=== PATIENT | female | born 1935 | race Caucasian/White ===

== ENCOUNTER 2017-03-09 05:46 | Day surgery (SDC) | payer MEDICARE ==
[2017-03-09] VITALS (12 sets, daily range): BP systolic 91–158; BP diastolic 53–78; PULSE 63–90; RESP 16–20; TEMP 97.8–98.2; O2SAT 92–99
[~2017-03-09] VITALS: Ht 157.5 cm; Wt 71.0 kg
[2017-03-09] MEDS ORDERED: LORazepam 1 MG TAB SL SCH (06:00)
[2017-03-09] MEDS ORDERED: SODIUM CHLORID 0.9% 500 ML INJ 500 ML IV SCH (06:00)
[2017-03-09] MEDS ORDERED: POVIDONE IODINE 5% (ANTISEPSIS KIT) 4 APPLICATIONS EACH NARE PRN (06:15)
[2017-03-09] MEDS ORDERED: CHLORHEXIDINE GLUCONATE 2 % 1 PACK (2 CLOTHS) TOPICAL PRN (06:15)
[2017-03-09] MEDS ORDERED: SODIUM CHLORID 0.9% 500 ML IV PRN (06:15)
[2017-03-09] MEDS ORDERED: METOPROLOL TARTRATE 25 MG TAB PO PRN (06:15)
[2017-03-09] MEDS ORDERED: LACTATED RINGER'S 1000 ML IV PRN (06:15)
[2017-03-09] MEDS ORDERED: INSULIN HUMAN REGULAR 1,000 UNITS/10 ML VIAL SQ PRN (06:15)
[2017-03-09] MEDS ORDERED: LEVOFLOXACIN 500 MG PREMIX INJ 100 ML IV ONE (06:30)
[2017-03-09] MEDS ORDERED: SODIUM CHLOR 0.9% 250 ML INJ 250 ML ONE (06:46)
[2017-03-09] MEDS ORDERED: MIDAZOLAM HCL 2 MG/2 ML VIAL ONE (06:46)
[2017-03-09] MEDS ORDERED: ISOPROTERENOL HCL 1 MG/5 ML AMP ONE (06:46)
[2017-03-09] MEDS ORDERED: HEPARIN-D5W INJ 250 ML ONE (06:46)
[2017-03-09] MEDS ORDERED: fentaNYL CITRATE 250 MCG/5 ML AMP ONE (06:46)
[2017-03-09] MEDS ORDERED: PROTAMINE SULFATE 50 MG/5 ML VIAL ONE (07:00)
[2017-03-09] MEDS ORDERED: FUROSEMIDE 40 MG/4 ML VIAL ONE (07:00)
[2017-03-09] MEDS ORDERED: HEPARIN SODIUM - IV 10,000 UNITS/10 ML VIAL ONE (07:00)
[2017-03-09 07:14] LABS: AUTOMATED NEUTROPHIL # 4.6 TH/MM3 (1.8-7.7); BASOPHIL % 0.4 % (0.0-2.0); EOSINOPHIL # 0.2 TH/MM3 (0-0.4); EOSINOPHIL % 2.7 % (0.0-4.0); HEMATOCRIT 33.3 % (35.0-46.0); HEMO FLAGS DIFF FINAL; LYMPH % 26.9 % (9.0-44.0); MEAN CELL VOLUME 90.2 FL (80.0-100.0); MEAN CORPUSCULAR HEMOGLOBIN 31.4 PG (27.0-34.0); MEAN CORPUSCULAR HGB CONC 34.9 % (32.0-36.0); PLATELET COUNT 256 TH/MM3 (150-450); RED BLOOD COUNT 3.69 MIL/MM3 (4.00-5.30); RED CELL DISTRIBUTION WIDTH 13.1 % (11.6-17.2); WHITE BLOOD COUNT 7.3 TH/MM3 (4.0-11.0)
[2017-03-09 07:17] LABS: APTT (PATIENT) 24.7 SEC (24.3-30.1); PROTHROMBIN TIME - PATIENT 10.6 SEC (9.8-11.6)
[2017-03-09 07:34] LABS: POTASSIUM 4.2 MEQ/L (3.5-5.1)
[2017-03-09] MEDS ORDERED: HEPARIN-NS/PF INJ 500 ML ONE (07:45)
[2017-03-09] MEDS ORDERED: METO25TA3 PO (08:14)
[2017-03-09] MEDS ORDERED: ATOR20TA15 PO (08:14)
[2017-03-09] MEDS ORDERED: ASPI81TA5 PO (08:14)
[2017-03-09] MEDS ORDERED: FISH1000 PO (08:14)
[2017-03-09] MEDS ORDERED: XARE20TA PO (08:14)
[2017-03-09] MEDS ORDERED: AMIO0.1T PO (08:14)
[2017-03-09] MEDS ORDERED: diphenhydrAMINE HCL 50 MG/ML VIAL ONE (08:25)
--- NOTE | 2017-03-09 10:11 | PD.CARD ---
Atrial Fibrillation Ablation PROCEDURE DATE: Mar 09, 2017 PROCEDURES PERFORMED: 1. Electrophysiology study and repeat electrophysiology on Isuprel infusion 2. CS cannulation 3. 3-D mapping 4. Transseptal approach 5. Right and left heart catheterization 6. Intracardiac echo 7. Radiofrequency ablation of atrial fibrillation 8. Pulmonary vein isolation 9. Posterior wall ablation 10. Mitral line creation 11. Anterior wall ablation INDICATIONS FOR THE PROCEDURE Ms. Fabian is a 81-year-old female with atrial fibrillation , very symptomatic despite multiple medications, on anticoagulation, previous ER visits referred for electrophysiology study and ablation. The risks, the nature and the benefits of the procedure were clearly stated to her. The risks include pneumothorax, cardiac perforation, stroke, need for open heart surgery and even . The patient understood and agreed to proceed. DESCRIPTION OF THE PROCEDURE IN DETAIL As written informed consent was obtained prior to esophageal echocardiogram, the patient was kept on the table where she was prepped and draped in the usual sterile fashion. Conscious sedation was initiated and maintained throughout the procedure by the anesthesiologist. Once sedation was verified, the right and left inguinal areas were anesthetized with 2% Xylocaine. Using modified Seldinger technique, the left femoral vein was cannulated on three occasions, three guidewires were advanced. Over the wire a 6, 7 and a 10-Tongan Hemaquet were advanced. Then the left femoral artery was cannulated on one occasion, one guidewire was advanced. Over the wire a 4-Tongan Hemaquet was advanced. Then the right femoral vein was cannulated on one occasion, one guidewire was advanced. Over the wire a 8-Tongan Hemaquet was advanced. Then under fluoroscopic guidance through the 6 and 7-Tongan Hemaquet, two 5-Tongan Brigitte curved quadripolar electrophysiology catheters were advanced and placed around the His as well as coronary sinus. Basic interval was measured. The patient was in atrial fibrillation. Through the 10-Tongan Hemaquet, a Cordis French AcuNav intracardiac echo catheter was advanced and placed at the right atrium. Multiple view was obtained. There was no pericardial effusion, pulmonary vein was seen, atrial septal was visualized. Then the 8-Tongan Hemaquet in the right femoral vein was exchanged for Agilis transseptal sheath that was placed all the way to the superior vena cava. Through the sheath a Shell needle was advanced, then the sheath, the dilator and the needle were progressed until foci engaged. Once engaged, the needle was advanced. RF was delivered for 2 seconds. I was able to cross into the left atrium. Once the needle crossed, the dilator was advanced. Once the dilator crossed, the sheath was advanced. Once the sheath crossed, the dilator and the needle were removed. At this point I did flood the system and fluid movement was seen in the left atrium the indicates the sheath is in good position. The patient already received 8,000 units of heparin. The goal is to keep an ACT around 350 during ablation. Then through the sheath a [facility]. Loi 20 pulse circumferential catheter was advanced. Using [employer] endocardial solution mapping system, a two- dimensional configuration of the left atrium was obtained. Points were taken at the left superior and inferior veins, right superior and inferior veins, mitral valve, and appendages. Then through the sheath a St. Loi TactiCath 65cm 3.5mm irrigated tipped mapping and radiofrequency ablation catheter was advanced. Esophageal probe was placed temperature monitoring during ablation. When it increased to 0.5 degrees Celsius above baseline, I moved to a different area of the atrium. First I did isolate the left superior and inferior vein. I did make a venetie around the veins. Posterior was ablated. A mitral line was created. Then the right superior and inferior veins were isolated. Anterior wall was ablated. Posterior wall was ablated. I did make a venetie around both veins. did remap the atrium. There is no significant signal in the atrium. At that point I did advance the circumferential catheter again into the vein. There was no signal into the vein, pacing from the vein showed no conduction to the atrium. Isuprel infusion was initiated at 20 mcg for over 10 minutes. No tachyarrhythmia was induced, post Isuprel no tachyarrhythmia was induced. At that point the procedure was complete. All catheters were removed, atrial septal sheath was exchanged for a 9French Hemaquet, intracardiac echo showed no pericardial effusion. There is still good flow in the pulmonary vein. The patient is going to be transferred to the recovery room. No incident report. The patient tolerated the procedure. Blood loss was minimal. FINDINGS 1. Electrocardiogram: At baseline the patient was in sinus rhythm. Post procedure EKG was unchanged. 2. Basic interval: Base cycle length was around 922. AH at 94 and HV at 72 milliseconds. 3. Tachyarrhythmia: Atrial fibrillation was mapped and ablated. The ablation was successful. CONCLUSION Successful electrophysiology study, mapping, radiofrequency ablation of atrial fibrillation,pulmonary vein isolation, posterior ablation, mitral line creation. COMMENTS AND RECOMMENDATIONS The patient is going to be transferred to the telemetry unit. Will be observed and when stable can be discharged home. Arsen Callahan MD Mar 09, 2017 10:11
[2017-03-09] MEDS ORDERED: LORazepam 2 MG/ML VIAL IV PRN (10:15)
[2017-03-09] MEDS ORDERED: oxyCODONE/ACETAMINOPHEN 5 MG/325 MG TAB PO PRN ×2 (10:15)
[2017-03-09] MEDS ORDERED: SODIUM CHLOR 0.9% 250 ML INJ 250 ML IV PRN (10:15)
[2017-03-09] MEDS ORDERED: BACITRACIN OINT 0.9 GM PKT TOP ONE (10:15)
[2017-03-09] MEDS ORDERED: ATROPINE SULFATE 1 MG/ML VIAL IV PRN (10:15)
[2017-03-09] MEDS ORDERED: LIDOCAINE HCL 1% 50 ML VIAL INFIL PRN (10:15)
[2017-03-09] MEDS ORDERED: METOCLOPRAMIDE HCL 10 MG/2 ML VIAL IV PRN (10:15)
[2017-03-09] MEDS ORDERED: ONDANSETRON HCL 4 MG/2 ML VIAL IV PRN (10:15)
--- NOTE | 2017-03-09 10:17 | CATHPROC ---
[facility] HIS Report Study Information Study Number Admission Scheduled Start Study Start [id number] Mar 09 2017 5:46AM 03/09/2017 Mar 09 2017 6:48AM [place] [facility] Electrophysiology Study Admit Source Facility Department Other [facility] - Power Plant Engineer Physician and Clinical Staff Initial Arsen Graham Veneer Measurer Claudia Vargas RCIS Veneer Measurer Elvis Steele,RT(R) Other Anesthesia, HOME CARE COORDINATOR Recorder Mercy Avalos,FABRICIO Recorder Caro Hayward,FABRICIO Scrub Carol Dey,WEATHERIZATION SPECIALIST TECH2 Procedures Performed Procedure Location (Site) Vessel Name Ablation Procedure ICE CATHETER INSERT RA Atruim RF Ablation LT. ATRIUM LT. ATRIUM Equipment Time Creel Selector Description Size Mfg Part Number Used/Scraped TRANSDUCER, TRUWAVE [id number] 07:58 TIRADO MCCABE * Used W/BITACOCK *[id number] NEEDLE, TRANSSEPTAL NRG 98 07:58 [facility] [id number] Used C1 COVER, TRANSDUCER CABLE 07:58 [employer] 612-113 Used ACUNAV 07:58 CONMED LEADWIRE, DEFIBRILLATION PAD 2001M-[id number] Used 07:58 CORDIS/PACER SHEATH, FR10 MEDARDO 11CM FR 10 [id number] Used 09:58 CORDIS/PACER SHEATH, FR9 MEDARDO 11CM FR 9 [id number] Used [id number] 07:58 [employer] PACK, CCL CUSTOM * Used *[id number] 07:58 MEDLINE PACER SANTIAGO, LIMB * 2530 *[id number] Used [id number] 07:58 [employer] MEDICAL SHEATH, FR4.5 PRELUDE 11CM FR 4.5 Used [id number] [id number] 07:58 NAMIC MANIFOLD, 4 PORT * Used *[id number] 07:58 NAMIC TUBING, HIGH PRESSURE 48" 48" Used *[id number] 07:58 NAMIC TUBING, HIGH PRESSURE 48" 48" Used *[id number] 07:58 GARC[employer] MED[employer] BLANKET,WARM AIR CCL * Used *[id number] CATHETER, TACTICATH ABLAT [id number] 08:55 [facility] [employer] Used 65 *[id number] 08:50 [facility] CATHETER, FR7 OPTIMA SPIRAL FR7 [id number] *[id number] Used [id number] 07:58 [facility] [employer] CATHETER, JSN, QUAD FR 5 Used *[id number] 699794 07:58 [facility] CATHETER, JSN, QUAD FR 5 Used *[id number] 07:58 [facility] [employer] ELECTRODE KIT, HUNTER X SURFACE * [id number] Used 07:58 [facility] [employer] SHEATH, EPS, FR6 FAST CATH FR 6 [id number] Used 08:33 [facility] [employer] SHEATH, EPS, FR6 FAST CATH FR 6 [id number] Used 07:58 [facility] [employer] SHEATH, EPS, FR7 FAST CATH FR 7 [id number] Used 07:58 [facility] [employer] SHEATH, EPS, FR8 FAST CATH FR 8 [id number] Used SHEATH, FR8.5 STEERABLE SM 08:48 [facility] 71CM [id number] Used 71CM CATHETER, ACUNAV FR10 ICE [id number] 08:41 JEN FR 10 Used (JEN) *[id number] [facility] PAD, ELECTROSURGICAL 07:58 * [id number] *[id number] Used SURGICAL GROUNDING (BLUE) History: Allergies Allergy Reaction Cipro History: Risk Factors Hypertension Dyslipidemia Yes Yes Labs Hgb (g/dl) Hct (%) RBC (MIL/MM3) WBC (l/cumm) Platelets (thousands) 12.00-18.00 37.00-55.00 4.80-6.20 4.80-10.80 140.00-450.00 11.0 33 3.6 7.3 256 Glucose (mg/dl) BUN (mg/dl) Creatinine (mg/dl) BUN:Creatinine (1:x) 60.00-110.00 8.00-20.00 0.10-9.00 10.00-20.00 93 10 0.6 16.7 Na (meq/l) K (meq/l) 138.00-146.00 3.80-5.10 140 4.2 INR (PTT:PT) 0.50-2.00 1 Medication Medication Total Dose (Bolus/Oral) Medication Total Dosage/Unit 1% XYLOCAINE 40 mL HEPARIN 32718 units LASIX 40 mg PROTAMINE 40 mg Medications (Bolus/Oral) Medication Time Given Dosage/Unit Administered By Reason 1% XYLOCAINE 03/09/2017 8:30:23 AM 20 mL Arsen Callahan 20 mL 1% XYLOCAINE given in lab by Arsen Callahan in Left Groin via Subcutaneous. Ordered by Alber Callahan 1% XYLOCAINE 03/09/2017 8:33:48 AM 20 mL Arsen Callahan 20 mL 1% XYLOCAINE given in lab by Arsen Callahan in Right Groin via Subcutaneous. Ordered by Wei Callahan. HEPARIN 03/09/2017 8:44:59 AM 8000 units Anesthesia, HOME CARE COORDINATOR 8000 units HEPARIN given in lab by Anesthesia, HOME CARE COORDINATOR via Peripheral IV. Ordered by Arsen Callahan. HEPARIN 03/09/2017 9:43:28 AM 2000 units Anesthesia, HOME CARE COORDINATOR 2000 units HEPARIN given in lab by Anesthesia, HOME CARE COORDINATOR via Peripheral IV. Ordered by Arsen Callahan. LASIX 03/09/2017 10:03:50 AM 40 mg Anesthesia, HOME CARE COORDINATOR 40 mg LASIX given in lab by Anesthesia, HOME CARE COORDINATOR via Peripheral IV. Ordered by Arsen Callahan. PROTAMINE 03/09/2017 10:06:33 AM 40 mg Anesthesia, HOME CARE COORDINATOR 40 mg PROTAMINE given in lab by Anesthesia, HOME CARE COORDINATOR via Peripheral IV. Ordered by Arsen Callahan. Medication (Drip) Medication Time Given Dosage/Unit Concentration/Unit Diluent (ml) Solution ISUPREL 03/09/2017 9:47:04 AM 20 mcg/min 1 mg 250 NaCl .9 20 mcg/min ISUPREL given in lab by Anesthesia, HOME CARE COORDINATOR via Peripheral IV. Pump/Drip Flow = 300 ml/hr usi ng NaCl .9 with a concentration of 1 mg in 250 ml. Ordered by Arsen Callahan. Initial Case Assessment Cardiovascular HR Rhythm NIBP Chest Pain 65 sr 163/98 0 Edema Present Skin color Skin None Normal Warm Dry Circulatory - Right Pulses Dorsalis Pedis 1 Scale (0,1,2,3,4,d) Circulatory - Left Pulses Dorsalis Pedis 2 Scale (0,1,2,3,4,d) Circulatory - Lower Extremities Color Lower Right Color Lower Left Normal Normal Neurological State Oriented to time-place- Alert Moves all extremities person Respiration - General Respiration Rate SpO2 (%) (B/min) 20 94 Final Case Assessment Cardiovascular HR Rhythm NIBP Chest Pain 105 Regular 128/68 0 Edema Present Skin color Skin None Normal Warm Dry Circulatory - Right Pulses Dorsalis Pedis 1 Scale (0,1,2,3,4,d) Circulatory - Left Pulses Dorsalis Pedis 2 Scale (0,1,2,3,4,d) Circulatory - Lower Extremities Color Lower Right Color Lower Left Normal Normal Neurological State Oriented to time-place- Alert Moves all extremities person Respiration - General Respiration Rate SpO2 (%) (B/min) 14 99 Chronological Log Time Study Chronological Log 7:27:22 Patient arrived via Bed. 7:28:29 Patient Name, D.O.B, / Armband Verified By R.N. 7:28:31 Consent signed by the physician and the patient and verified by the Power Plant Engineer staff. 7:28:32 Pre-op and post- op instructions given; patient acknowledges understanding of instructions. 7:36:06 Verbal Stimulation=2 Physical Stimulation=2 Airway=2 Respiration=2 TOTAL=8. (0=absent, 1=li mited, 2=present) 7:36:07 Anesthesia at bedside. Assumes care of patient. 7:36:09 Patient has been NPO for More than 6Hrs. 7:36:10 Skin Breakdown- 7:36:11 Patient Warmer Placed on the Table. 7:36:12 Disposable Defibrillator Pads Placed On Patient. 7:36:14 Kvng Prominences Protected 7:36:15 A # 22 IV was noted in the Wrist (left). Grade = 0 0.9ns kvo 7:36:17 History and physical on the chart or being dictated. Assessment: Initial Case, HR=65 BPM, Rhythm=sr, QXXK=326/98 mmhg, Chest Pain=0, Edema=None, [place] r=Normal, Skin = Warm, Dry Right Pulses: Benedict Ped=1 Left Pulses: Benedict Ped=2 7:40:28 Lower Right Extremities: Color=Normal Lower Left Extremities: Color=Normal Neurological: State=Alert, Ox3, COYNE Respiration: Resp=20 B/min, SpO2=94 % 7:48:15 Table restraints applied according to hospital policy 7:53:03 Bilateral groins prepped with 2% chlorhexidine, and with a 3 min. waiting time. 7:56:11 Reference ECG taken 8:00:12 Anesthesia present for intubation 8:01:54 Pressure channel 1 zeroed. 8:04:36 MD paged 8:21:27 MD arrived. 8:21:35 MM out. JA in. Time Out. Correct patient, procedure, procedure equipment, site and side verified with physician present. Time 8:24:12 concurred by MD, individual staff and HOME CARE COORDINATOR. Time Out #2 - Consents verified, patient in correct position, all results are labled and display ed, safety precautions 8:24:23 taken, antibiotics administered. Time out concurred by MD, individual staff and HOME CARE COORDINATOR in procedur e 8:25:27 Case Start 8:25:30 SUJIT in progress 8:29:06 SUJIT complete 8:30:23 20 mL 1% XYLOCAINE given in lab by Arsen Callahan in Left Groin via Subcutaneous. Ordered by Arsen Callahan. 8:30:34 Vascular access was obtained in the Fem Vein (left). 8:30:38 Vascular access was obtained in the Fem Vein (left). 8:30:39 Vascular access was obtained in the Fem Vein (left). 8:30:40 Vascular access was obtained in the Fem Art (left). 8:31:24 A SHEATH, EPS, FR6 FAST CATH FR 6 was advanced into the Fem Vein (left) using the Modified S eldinger technique. 8:31:41 A SHEATH, EPS, FR7 FAST CATH FR 7 was advanced into the Fem Vein (left) using the Modified S eldinger technique. 8:31:45 A SHEATH, FR10 MEDARDO 11CM FR 10 was advanced into the Fem Vein (left) using the Modified Se farmer technique. 8:31:50 A SHEATH, FR4.5 PRELUDE 11CM FR 4.5 was advanced into the Fem Art (left) using the Modified Seldinger technique. 8:33:48 20 mL 1% XYLOCAINE given in lab by Arsen Callahan in Right Groin via Subcutaneous. Ordered by Arsen Callahan. 8:34:01 Vascular access was obtained in the Fem Vein (left). 8:34:05 A SHEATH, EPS, FR8 FAST CATH FR 8 was advanced into the Fem Vein (right) using the Modified Seldinger technique. 8:34:32 Vascular access was obtained in the Fem Vein (left). A SHEATH, EPS, FR6 FAST CATH FR 6 was advanced into the Fem Vein (right) using the Modified Seld madelaine technique. 8:34:39 placed for IV access per physician A CATHETER, JSN, QUAD FR 5 was advanced vis Fem Vein (left) and placed in the CS. Placement was visually 8:37:15 confirmed under fluoroscopy. A CATHETER, JSN, QUAD FR 5 was advanced vis Fem Vein (left) and placed in the HIS. Placement was visually 8:39:09 confirmed under fluoroscopy. 8:40:49 CATHETER, ACUNAV FR10 ICE (JEN) FR 10 Was Postioned. A SHEATH, FR8.5 STEERABLE SM 71CM 71CM was exchanged in the Fem Vein (right). This was necessary in order for 8:42:03 catheter support. 8:43:54 Jason needle inserted 8:44:53 A eps was advanced to the right atrium and passed through the septal wall to the left atrium . 8:44:59 8000 units HEPARIN given in lab by Anesthesia, HOME CARE COORDINATOR via Peripheral IV. Ordered by Fco Callahan. 8:46:25 Jason needle removed A CATHETER, FR7 OPTIMA SPIRAL FR7 was advanced vis Fem Vein (right) and placed in the LA. Place ment was 8:49:17 visually confirmed under fluoroscopy. 8:49:46 mapping in progress 8:54:09 mapping complete, spiral catheter removed 8:59:52 Activated Clotting Time Drawn A CATHETER, TACTICATH ABLAT 65 was advanced vis Fem Vein (right) and placed in the LA. Placemen t was visually 9:00:14 confirmed under fluoroscopy. 9:01:01 Activated Clotting Time Drawn 9:01:21 RF Ablation of the LT. ATRIUM with a CATHETER, TACTICATH ABLAT 65. 9:07:46 ACT (Normal Range 90-180) = 387 9:34:57 Activated Clotting Time Drawn 9:37:10 Ablation complete, Tacticath catheter removed A CATHETER, FR7 OPTIMA SPIRAL FR7 was advanced vis Fem Vein (right) and placed in the LA. Place ment was 9:38:16 visually confirmed under fluoroscopy. mapping in progress 9:39:37 9:42:17 mapping cath removed 9:42:29 ACT (Normal Range 90-180) = 297 A CATHETER, TACTICATH ABLAT 65 was advanced vis Fem Vein (right) and placed in the LA. Placemen t was visually 9:42:41 confirmed under fluoroscopy. 9:43:08 RF Ablation of the LT. ATRIUM with a CATHETER, TACTICATH ABLAT 65. 9:43:28 2000 units HEPARIN given in lab by Anesthesia, HOME CARE COORDINATOR via Peripheral IV. Ordered by Fco Callahan. 9:46:48 Ablation complete 20 mcg/min ISUPREL given in lab by Anesthesia, HOME CARE COORDINATOR via Peripheral IV. Pump/Drip Flow = 300 ml/ hr using NaCl .9 9:47:04 with a concentration of 1 mg in 250 ml. Ordered by Arsen Callahan. 9:48:45 Activated Clotting Time Drawn 9:56:05 Isuprel discontinued per A SHEATH, FR9 MEDARDO 11CM FR 9 was exchanged in the Fem Vein (right). This was necessary in ord er to achieve 9:58:09 vascular hemostasis. 9:59:00 Case End 10:00:20 ACT (Normal Range 90-180) = 447 10:02:33 Catheter(s) removed without difficulty 10:02:48 Sheath(s) left in place, will be removed in Holding Area 10:02:58 PACU called. Spoke to Naomi 10:03:21 Bedside Report will be given. 10:03:23 Cine recording checked. 10:03:24 No case complications noted. 10:03:50 40 mg LASIX given in lab by Anesthesia, HOME CARE COORDINATOR via Peripheral IV. Ordered by Arsen Callahan. Assessment: Final Case, PE=845 BPM, Rhythm=Regular, QAOE=180/68 mmhg, Chest Pain=0, Edema=None , Color=Normal, Skin = Warm, Dry Right Pulses: Benedict Ped=1 Left Pulses: Benedict Ped=2 10:04:13 Lower Right Extremities: Color=Normal Lower Left Extremities: Color=Normal Neurological: State=Alert, Ox3, COYNE Respiration: Resp=14 B/min, SpO2=99 % 10:05:10 Ablation procedure performed: AFIB. 10:05:18 EP Procedure was performed. 10:06:33 40 mg PROTAMINE given in lab by Anesthesia, HOME CARE COORDINATOR via Peripheral IV. Ordered by Bib Callahan. 10:06:45 Defibrillator and ground pads removed. Skin intact. 10:13:07 Activated Clotting Time Drawn 10:15:21 ACT (Normal Range 90-180) = 137 10:18:16 Patient moved to stretcher End Study - Contrast Media Used In Study Contrast Total Opened (mL) Total Used (mL) Total Wasted (mL) Unspecified 0 0 0 End Study - Maximum Contrast Load Max Contrast Load (mL) 561.7 End Study - Radiation Exposure Fluoro Time (minutes) 5.5 End Study - Patient Disposition Complications Transferred To Interventional Outcome No Telemetry Bed successful
[2017-03-09] MEDS ORDERED: DO NOT ADM ANY ANTICOAGULANT DRUGS PRN (10:30)
[2017-03-09] MEDS ORDERED: PILL SPLITTER OTHER PRN (10:30)
[2017-03-09] MEDS ORDERED: *morphine SULFATE 8 MG/ML PERIprocedure ONLY ONE (11:15)
--- NOTE | 2017-03-09 13:49 | EKG ---
Date Performed: 03/09/2017 Time Performed: 06:54:28 PTAGE: 81 years EKG: Sinus rhythm with borderline 1st degree A-V block. Anterior T wave changes are nonspecific Borderline ECG NO PREVIOUS TRACING DOCTOR: Jaqueline Shah Interpretating Date/Time 03/09/2017 13:44:03
[2017-03-09] MEDS ORDERED: PROPOFOL 200 MG/20 ML AMP IV ONE (13:51)
--- NOTE | 2017-03-09 14:19 | EKG ---
Date Performed: 03/09/2017 Time Performed: 11:05:03 PTAGE: 81 years EKG: Sinus rhythm MODERATE T-WAVE ABNORMALITY, CONSIDER ANTERIOR ISCHEMIA ABNORMAL ECG Compared to PREVIOUS TRACING , the anterior ST segment depression is new and myocardial ischemia shou ld be excluded clinically. PREVIOUS TRACIN03/09/2017 06.54 DOCTOR: Jaqueline Shah Interpretating Date/Time 03/09/2017 14:17:45
[2017-03-09] MEDS ORDERED: RIVAROXABAN 20 MG TAB PO SCH (18:00)
[2017-03-09] MEDS: METOPROLOL TARTRATE 25 MG TAB PO SCH (20:14)
[2017-03-10] VITALS (14 sets, daily range): BP systolic 114–142; BP diastolic 66–75; PULSE 73–82; RESP 16; TEMP 97.3–98; O2SAT 94–100
[2017-03-10 04:53] LABS: APTT (PATIENT) 33.6 SEC (24.3-30.1); INTERNATIONAL NORMALIZED RATIO 1.3 RATIO; PROTHROMBIN TIME - PATIENT 14.5 SEC (9.8-11.6)
[2017-03-10] MEDS: METOPROLOL TARTRATE 25 MG TAB PO SCH (08:51)
[2017-03-10] MEDS ORDERED: ATORVASTATIN 20 MG TAB PO SCH (09:00)
[2017-03-10] MEDS ORDERED: AMIODARONE 200 MG TAB PO SCH (09:00)
--- NOTE | 2017-03-10 12:39 | HHI.PR ---
Subjective Remarks Feeling ok. No palpitation. Objective Vital Signs Date Time Temp Pulse Resp B/P Pulse Ox O2 Delivery O2 Flow Rate FiO2 03/10/17 12:13 74 03/10/17 11:26 76 03/10/17 11:26 97.6 75 16 142/75 95 03/10/17 10:18 76 03/10/17 09:39 77 03/10/17 08:29 77 03/10/17 07:36 97.3 76 16 115/69 100 03/10/17 06:00 76 03/10/17 05:00 76 03/10/17 04:00 74 03/10/17 03:00 73 03/10/17 03:00 98.0 78 16 114/66 94 03/10/17 02:00 74 03/10/17 01:00 82 03/10/17 00:00 78 03/09/17 23:00 97.8 84 16 91/53 95 03/09/17 23:00 83 03/09/17 22:00 86 03/09/17 21:00 86 03/09/17 20:00 86 03/09/17 19:00 88 03/09/17 19:00 97.9 90 20 109/65 92 03/09/17 18:16 98.2 82 18 104/59 94 03/09/17 16:08 98.2 81 18 104/60 92 03/09/17 15:30 98.2 82 18 109/64 93 03/09/17 15:15 98.2 82 18 102/65 94 03/09/17 14:00 98.2 80 18 99/65 97 03/09/17 13:00 98.2 80 18 107/60 97 03/09/17 13:00 98.2 80 18 107/60 95 I/O 03/09/17 03/09/17 03/09/17 03/10/17 03/10/17 03/10/17 07:00 15:00 23:00 07:00 15:00 23:00 Intake Total 900 ml 480 ml 480 ml Output Total 1650 ml 600 ml 480 ml Balance -750 ml -120 ml 0 ml Intake Oral 480 ml 480 ml IV Total 100 ml Other 800 ml Output Urine Total 1600 ml 600 ml 480 ml Estimated Blood Loss 50 ml Result Diagram: 03/09/17 0650 03/09/17 0650 Imaging Alert, fully oriented Lungs: ventilated Heart: S1, S2 regular, no rub Abdomen: soft, no mass Ext: no edema Vital Signs Date Time Temp Pulse Resp B/P Pulse Ox O2 Delivery O2 Flow Rate FiO2 03/10/17 12:13 74 03/10/17 11:26 76 03/10/17 11:26 97.6 75 16 142/75 95 03/10/17 10:18 76 03/10/17 09:39 77 03/10/17 08:29 77 03/10/17 07:36 97.3 76 16 115/69 100 03/10/17 06:00 76 03/10/17 05:00 76 03/10/17 04:00 74 03/10/17 03:00 73 03/10/17 03:00 98.0 78 16 114/66 94 03/10/17 02:00 74 03/10/17 01:00 82 03/10/17 00:00 78 03/09/17 23:00 97.8 84 16 91/53 95 03/09/17 23:00 83 03/09/17 22:00 86 03/09/17 21:00 86 03/09/17 20:00 86 03/09/17 19:00 88 03/09/17 19:00 97.9 90 20 109/65 92 03/09/17 18:16 98.2 82 18 104/59 94 03/09/17 16:08 98.2 81 18 104/60 92 03/09/17 15:30 98.2 82 18 109/64 93 03/09/17 15:15 98.2 82 18 102/65 94 03/09/17 14:00 98.2 80 18 99/65 97 03/09/17 13:00 98.2 80 18 107/60 97 03/09/17 13:00 98.2 80 18 107/60 95 Current Medications Medications (Trade) Dose Ordered Sig/Fei Route Start Time Stop Time Status Last Admin (NS 500 ml Inj) 500 ml @ 30 mls/hr [id number] IV 03/09/17 06:00 (Percocet 5-325 Mg) 1 tab Q4H PRN PO 03/09/17 10:15 (Percocet 5-325 Mg) 2 tab Q4H PRN PO 03/09/17 10:15 (Atropine Inj) 0.5 mg UNSCH PRN IV 03/09/17 10:15 (Reglan Inj) 10 mg Q4H PRN IV 03/09/17 10:15 (Zofran Inj) 4 mg Q4H PRN IV 03/09/17 10:15 (Cordarone) 50 mg DAILY PO 03/10/17 09:00 03/10/17 08:51 (Lipitor) 20 mg DAILY PO 03/10/17 09:00 03/10/17 08:51 (Lopressor) 12.5 mg BID PO 03/09/17 21:00 03/10/17 08:51 (Xarelto) 20 mg DAILY@1800 PO 03/09/17 18:00 03/09/17 17:34 (Pill Splitter) 1 ea UNSCH PRN OTHER 03/09/17 10:30 Assessment and Plan Problem List: (1) Atrial fibrillation Status: Acute Plan: SP ablation. Doing well In sinus . Will be DH Follow up as scheduled (2) Palpitations Status: Acute Plan: No significant episode. Arsen Callahan MD Mar 10, 2017 12:39
--- NOTE | 2017-03-10 16:36 | EKG ---
Date Performed: 03/10/2017 Time Performed: 05:48:40 PTAGE: 81 years EKG: Sinus rhythm Anterior T wave changes are nonspecific Low QRS voltages in precordial leads Borderline ECG Compared to PREVIOUS TRACING , anterior T wave changes are no longer present. PREVIOUS TRACIN03/09 11.05 DOCTOR: Elina Sauer Interpretating Date/Time 03/10/2017 16:35:30
--- NOTE | 2017-03-15 23:03 | ECHRPT ---
Indication: CONCLUSIONS Adequate left ventricular systolic function. Ejection fraction 55-60% Mild left atrial enlargement. No clot seen in left atrium , nor left atrial appendage Adequate emptying of left atrial appaendage No right to left shunt BP: / HR: Rhythm: Technical Quality: Medications Sedation was administered by anesthesiologist Complications None Proc. Components FINDINGS LEFT VENTRICLE Normal left ventricular size and wall thickness. The left ventricular systolic function is normal wi th an estimated ejection fraction in the range of 55-60%. Left ventricular diastolic function parameters a re normal. RIGHT VENTRICLE Normal right ventricular size and systolic function. LEFT ATRIUM Mild enlargement RIGHT ATRIUM The right atrial size is normal. ATRIAL APPENDAGES No clot seen ATRIAL SEPTUM Normal atrial septal thickness without atrial level shunting by limited color doppler interrogation. AORTA The aortic root and proximal ascending aorta are normal in size on limited imaging. MITRAL VALVE Structurally normal mitral valve. No mitral valve stenosis or regurgitation. AORTIC VALVE Trileaflet aortic valve. No aortic valve stenosis or regurgitation. VESSELS The inferior vena cava is normal in size. PULMONARY VALVE The pulmonary valve is not well visualized. PERICADIUM No pericardial effusion. Arsen Callahan MD (Electronically Signed) Final Date:15 March 2017 23:01
== END 2017-03-10 13:20 | disposition home or self-care (01) ==
LOC: HDOC 05:46 → HDIC 05:47 → HCIS 12:40 → HDOC 03-10 13:20
PROVIDERS: ATTEND Internal Medicine Interventional Cardiology
DX: I48.91 Unspecified atrial fibrillation (principal); R00.2 Palpitations; Z01.810 Encounter for preprocedural cardiovascular examination; I10 Essential (primary) hypertension; Z01.818 Encounter for other preprocedural examination
CPT/HCPCS: 00537; 80048; 85002; 85025; 85610; 85730; 86850; 86900; 86901; 93005; 93312; 93320; 93325; 93613; 93623; 93656; 93662; C1730; C1731; C1732; C1759; C1766; C2630; J1200; J1644; J1940; J1956; J2250; J2270; J2720; J3010; J7050